=== PATIENT | male | born 1990 | race Two or more races ===

== ENCOUNTER 2017-06-25 13:16 | Emergency (ER) | payer SELFPAY ==
[~2017-06-25] VITALS: Ht 149.9 cm; Wt 64.4 kg
[2017-06-25 14:57] LABS: HEMATOCRIT 48.3 % (42.0-52.0); MEAN CORPUSCULAR VOLUME 88 FL (80-99); PLATELET COUNT 211 K/UL (150-450); RED BLOOD COUNT 5.51 M/UL (4.70-6.10); RED CELL DISTRIBUTION WIDTH 11.6 % (11.6-14.8); WHITE BLOOD COUNT 10.4 K/UL (4.8-10.8)
[2017-06-25 14:58] VITALS: BP 121/76
--- NOTE | 2017-06-25 14:58 | Emergency Room Report ---
History of Present Illness General Chief Complaint: General Complaint Source: Patient Present Illness HPI 26 yo male patient presents to ER complaining of chest tightness x3 hours. Reports pain with deep inspiration. Reports hx of similar symptoms. Denies hx of asthma, MS, or cardiovascular disease. Denies chest pain with exercise. Denies hx of chest pain or asthma. Denies cough. Denies [place]O, diarrhea, abdominal pain, dysuria. Reports used crystal meth on Friday. Reports only time used. Denies hx of smoking or alcohol. Denies fever, neck pain, calf pain. Reports recently feeling stressed. Denies hx of psych problems. Denies suicidal or homicidal ideation. Allergies: Coded Allergies: No Known Allergies (Unverified , 06/25/17) Patient History Past Medical History: see triage record Reviewed Nursing Documentation: PMH: Agreed; PSxH: Agreed Nursing Documentation-PMH Past Medical History: No Stated History Review of Systems All Other Systems: negative except mentioned in HPI Physical Exam Vital Signs Date Time Temp Pulse Resp B/P (MAP) Pulse Ox O2 Delivery O2 Flow Rate FiO2 06/25/17 13:33 98.2 73 19 121/76 95 Room Air 98.2 Sp02 EP Interpretation: reviewed, normal General Appearance: well appearing, no apparent distress, alert, GCS 15, non- toxic Head: normocephalic, atraumatic Eyes: bilateral eye normal inspection, bilateral eye PERRL ENT: hearing grossly normal, normal pharynx, no angioedema, normal voice, uvula midline, moist mucus membranes Neck: full range of motion Respiratory: lungs clear, normal breath sounds, no rhonchi, no respiratory distress, no accessory muscle use, no wheezing, speaking full sentences Cardiovascular #1: regular rate, rhythm, no edema Cardiovascular #2: 2+ radial (R), 2+ radial (L) Gastrointestinal: non tender, soft, no mass, non-distended, no guarding, no rebound Musculoskeletal: back normal, digits/nails normal, gait/station normal, normal range of motion, non-tender, no calf tenderness, Peter's Sign negative Neurologic: alert, oriented x3, responsive, motor strength/tone normal, sensory intact Psychiatric: mood/affect normal Skin: no rash Lymphatic: no adenopathy Medical Decision Making PA Attestation Dr. Magallon is my supervising Physician whom patient management has been discussed with. Diagnostic Impression: Primary Impression: Non-cardiac chest pain ER Course Pt. presents to the ED c/o chest pain. Ddx considered but are not limited to pericarditis, costochondritis, MS, arrhythmia. No calf swelling, negative Peter's sign, no hemoptysis, low suspicion for PE per PERC criteria. Low suspicion for cardiac cause of pain. Will order labs to rule out. On PE, chest pain is reproducible with deep inspiration, no change in symptoms with laying down or leaning forward. Chest pain likely not cardiac. Patient instructed to take NSAIDs as needed for pain symptoms. Vital signs: are WNL, pt. is afebrile Ordered X-ray, labs, troponin, EKG and pain medication. ER COURSE Labs shows no elevation in WBC or LFTs Troponin negative CKMB WNL CXR negative for acute disease Urine drug screen negative EKG no ST elevation or arrhythmia Results discussed with patient. Informed patient cardiac cause of pain unlikely. HEART score low risk for cardiac event. Followup with primary care provider, discuss referral to cardiology. Followup with mental health profession for evaluation and treatment for possible anxiety. Denies recent illness, Informed patient pain may be due to inflammation, possible costochondritis. Take Tylenol for pain symptoms. Patient stable for discharge to home. Patient resting comfortably, in no acute distress, nontoxic appearing. ER precautions provided, return to ER for new or worsening of symptoms. Don't smoke or do drugs. DISCHARGE: -Rx provided for Tylenol for pain symptoms. At this time pt. is stable for d/c to home. Patient is resting comfortably, in no acute distress, nontoxic appearing, talking without difficulty. Will provide printed patient care instructions, and any necessary prescriptions. Patient instructed to follow with primary care provider in 1-3 days. Followup with primary care provider for further pain medication rx. Followup with adult protective caseworker and eye doctor. Care plan and follow up instructions have been discussed with the patient prior to discharge. Take medications as directed. Patient questions asked and answered. Patient reports understanding and agreement to treatment plan. ER precautions given, patient instructed to return to ER immediately for any new or worsening of symptoms. Labs Test 06/25/17 14:45 06/25/17 15:57 White Blood Count 10.4 K/UL (4.8-10.8) Red Blood Count 5.51 M/UL (4.70-6.10) Hemoglobin 17.0 G/DL (14.2-18.0) Hematocrit 48.3 % (42.0-52.0) Mean Corpuscular Volume 88 FL (80-99) Mean Corpuscular Hemoglobin 30.8 PG (27.0-31.0) Mean Corpuscular Hemoglobin Concent 35.1 G/DL (32.0-36.0) Red Cell Distribution Width 11.6 % (11.6-14.8) Platelet Count 211 K/UL (150-450) Mean Platelet Volume 7.8 FL (6.5-10.1) Neutrophils (%) (Auto) % (45.0-75.0) Lymphocytes (%) (Auto) % (20.0-45.0) Monocytes (%) (Auto) % (1.0-10.0) Eosinophils (%) (Auto) % (0.0-3.0) Basophils (%) (Auto) % (0.0-2.0) Differential Total Cells Counted 100 Neutrophils % (Manual) 83 % (45-75) Lymphocytes % (Manual) 12 % (20-45) Monocytes % (Manual) 5 % (1-10) Eosinophils % (Manual) 0 % (0-3) Basophils % (Manual) 0 % (0-2) Band Neutrophils 0 % (0-8) Platelet Estimate Adequate Platelet Morphology Normal Red Blood Cell Morphology Normal Sodium Level 138 MMOL/L (136-145) Potassium Level 3.8 MMOL/L (3.5-5.1) Chloride Level 102 MMOL/L (98-107) Carbon Dioxide Level 27 MMOL/L (21-32) Anion Gap 9 mmol/L (5-15) Blood Urea Nitrogen 18 mg/dL (7-18) Creatinine 0.8 MG/DL (0.55-1.30) Estimat Glomerular Filtration Rate > 60 mL/min (>60) Glucose Level 108 MG/DL (74-106) Calcium Level 9.4 MG/DL (8.5-10.1) Total Bilirubin 1.3 MG/DL (0.2-1.0) Direct Bilirubin 0.2 MG/DL (0.0-0.3) Aspartate Amino Transf (AST/SGOT) 28 U/L (15-37) Alanine Aminotransferase (ALT/SGPT) 54 U/L (12-78) Alkaline Phosphatase 88 U/L (46-116) Total Creatine Kinase 280 U/L (26-308) Creatine Kinase MB 1.9 NG/ML (0.0-3.6) Creatine Kinase MB Relative Index 0.6 Troponin I 0.000 ng/mL (0.000-0.056) Total Protein 8.1 G/DL (6.4-8.2) Albumin 4.6 G/DL (3.4-5.0) Globulin 3.5 g/dL Albumin/Globulin Ratio 1.3 (1.0-2.7) Urine Opiates Screen Negative (NEGATIVE) Urine Barbiturates Screen Negative (NEGATIVE) Phencyclidine (PCP) Screen Negative (NEGATIVE) Urine Amphetamines Screen Negative (NEGATIVE) Urine Benzodiazepines Screen Negative (NEGATIVE) Urine Cocaine Screen Negative (NEGATIVE) Urine Marijuana (THC) Screen Negative (NEGATIVE) EKG Diagnostic Results Rate: normal Rhythm: NSR ST Segments: other - nonspecific ST abnormality Other Impression possible early repolarization ASA given to the pt in ED: Yes CARMELO Scribe Serena David PA-C Rhythm Strip Diag. Results EP Interpretation: yes Rate: 65 Rhythm: NSR PA Scribe Serena David PA-C Chest X-Ray Diagnostic Results Chest X-Ray Diagnostic Results : Chest X-Ray Ordered: Yes # of Views/Limited/Complete: 1 View Indication: Chest Pain EP Interpretation: Yes PA Xray: Interpretation reviewed, by supervising MD, and agrees with findings. Interpretation: no consolidation, no effusion, no pneumothorax, no acute cardiopulmonary disease Impression: No acute disease PA Scribe Serena David PA-C Last Vital Signs Date Time Temp Pulse Resp B/P (MAP) Pulse Ox O2 Delivery O2 Flow Rate FiO2 06/25/17 13:33 98.2 73 19 121/76 95 Room Air 98.2 Disposition: HOME, SELF-CARE Condition: Serious Scripts Acetaminophen* (TYLENOL EXTRA STRENGTH*) 500 Mg Tablet 500 MG ORAL Q8H PRN for Prn Headache/Temp > 101, #30 TAB 0 Refills Prov: Cheo David 06/25/17 Patient Instructions: Nonspecific Chest Pain, [id number] Additional Instructions: Followup with primary care provider in 2-3 days. Discuss referral to cardiology. Avoid strenuous exercise. Take medications as directed. Patient questions asked and answered. ER precautions given, patient instructed to return to ER immediately for any new or worsening of symptoms including but not limited to chest pain, SOB, intractable vomiting. Cheo David Jun 25, 2017 14:58
[2017-06-25] MEDS ORDERED: Aspirin Baby 81mg ORAL ONE (15:00)
[2017-06-25 15:16] LABS: ANION GAP 9 mmol/L (5-15); BLOOD UREA NITROGEN 18 mg/dL (7-18); CALCIUM 9.4 MG/DL (8.5-10.1); CARBON DIOXIDE 27 MMOL/L (21-32); CHLORIDE 102 MMOL/L (98-107); CREATININE 0.8 MG/DL (0.55-1.30); POTASSIUM 3.8 MMOL/L (3.5-5.1); SODIUM 138 MMOL/L (136-145)
[2017-06-25 15:26] LABS: ALANINE AMINOTRANSFERASE 54 U/L (12-78); ALBUMIN 4.6 G/DL (3.4-5.0); ALBUMIN/GLOBULIN RATIO 1.3 (1.0-2.7); ALKALINE PHOSPHATASE 88 U/L (46-116); ASPARTATE AMINO TRANSFERASE 28 U/L (15-37); BILIRUBIN,TOTAL 1.3 MG/DL (0.2-1.0); CKMB 1.9 NG/ML (0.0-3.6); CREATINE KINASE 280 U/L (26-308)
[2017-06-25 15:27] LABS: BILIRUBIN,DIRECT 0.2 MG/DL (0.0-0.3)
--- NOTE | 2017-06-25 15:51 | Diagnostic Imaging Report ---
Indication: Chest pain Technique: One view of the chest Comparison: none Findings: Lungs and pleural spaces are clear. Heart size is normal Impression: No acute process
[2017-06-25] MEDS ORDERED: TYLENOL EXTRA500 MG ORAL (16:33)
[2017-06-25 17:30] VITALS: BP 126/75
--- NOTE | 2017-06-26 21:22 | Cardiology Report ---
APPROVED REPORT EKG Measurement Heart [id number] Normal sinus rhythm Nonspecific ST abnormality Abnormal ECG
== END 2017-06-25 17:30 | disposition other institution (70) ==
LOC: EMR 14:13
DX: R07.89 Other chest pain (principal)
CPT/HCPCS: 36415; 71045; 80053; 80307; 82248; 82550; 82553; 84484; 85007; 85025; 93005; 99285